=== PATIENT | female | born 1975 ===

== ENCOUNTER 2018-01-21 10:41 | Emergency (ER) | payer OTHER ==
[2018-01-21 10:44] VITALS: BMI 34.0
--- NOTE | 2018-01-21 11:26 | ED PDOC ---
Upper Extremity Pain/Injury Time Seen by Provider: 01/21/18 10:46 History Per: Patient History/Exam Limitations: language barrier Onset/Duration Of Symptoms: Hrs Current Symptoms Are (Timing): Constant Quality: Sharp Pain Scale Rating Of: 8 Additional History Per: Patient, Family (Son by bedside ) Additional Complaint(s): CC: L shoulder pain and nausea HPI: 42 YO Female with PMHx of asthma presents to [facility] ED for L shoulder pain and nausea. Pt states that all of her symptoms started this morning, suddenly. Pain is primarily in the shoulder and radiates down to the elbow. The shoulder pain started first and subsequently her nausea and abdominal discomfort started. Pt is dry heaving but no emesis. No trauma, pain worse with ROM of the shoulder. PMHx: asthma, uterine CIS SurgHx: hernia repair x 2 abd, hysterectomy, L arthoscopy, appendectomy SH: denies ETOH, smoking and illicit drug use FH: unknown Allergies: NKDA Meds: singular Past Medical History Vital Signs: Last Vital Signs Temp 98 F 01/21/18 10:44 Pulse 99 H 01/21/18 10:44 Resp 17 01/21/18 10:44 BP 115/76 01/21/18 10:44 Pulse Ox 99 01/21/18 10:44 - Medical History PMH: Asthma - Surgical History Surgical History: Appendectomy, Hernia Repair - Family History Family History: States: No Known Family Hx - Living Arrangements Living Arrangements: With Family - Social History Current smoker - smoking cessation education provided: No Alcohol: None Drugs: Denies - Home Medications Home Medications: Ambulatory Orders Medication Instructions Recorded Naproxen [Naprosyn] 500 mg PO Q12H #20 tab 01/21/18 - Allergies Allergies/Adverse Reactions: Allergies Allergy/AdvReac Type Severity Reaction Status Date / Time No Known Allergies Allergy Verified 01/21/18 11:18 Review of Systems Constitutional: Negative for: Fever, Chills Cardiovascular: Negative for: Chest Pain, Palpitations Respiratory: Negative for: Cough, Shortness of Breath Gastrointestinal: Positive for: Nausea. Negative for: Vomiting, Diarrhea, Constipation Genitourinary Female: Negative for: Dysuria, Frequency Musculoskeletal: Positive for: Shoulder Pain (R) Neurological: Negative for: Weakness, Numbness Physical Exam - Physical Exam Appears: Positive for: Uncomfortable Head Exam: Positive for: ATRAUMATIC Skin: Positive for: Normal Color Eye Exam: Positive for: Normal appearance, EOMI Neck: Positive for: Painless ROM Cardiovascular/Chest: Positive for: Regular Rate, Rhythm. Negative for: Murmur Respiratory: Positive for: Normal Breath Sounds. Negative for: Wheezing Gastrointestinal/Abdominal: Positive for: Normal Exam, Bowel Sounds ( hyperactive BS), Soft. Negative for: Tenderness Back: Positive for: Normal Inspection Extremity: Positive for: Normal ROM (of the RUE and lower extreities ), Swelling (mild edema around bicep insertsion site ), Other (pain with passive ROM, tenderness to palpation of the bicep muscle insertsion and bicep brachii). Negative for: Pedal Edema, Deformity Neurologic/Psych: Positive for: Alert - Laboratory Results Result Diagrams: 01/21/18 11:40 01/21/18 11:40 - ECG O2 Sat by Pulse Oximetry: 99 - Progress ED Course And Treament: 42 YO Female with LUE pain. VS stable, tachycardia -XR of humerus, and shoulder L side -cbc, cmp -zofran, IVF -toradol for pain 12:38--pt seen and reevaluated XR of humerus and of the shoulder L negative, no acute findings Blood work appreciated, normal Pt feeling better after IV meds and fluids Will d/c pt home with follow up in [facility], PO Naproxen for pain as needed Pt agrees with plan. Disposition - Clinical Impression Clinical Impression: Bursitis - Patient ED Disposition Is Patient to be Admitted: No - Disposition Referrals: [facility] [Outside] Disposition: Routine/Home Disposition Time: 12:49 Condition: FAIR Prescriptions: Naproxen [Naprosyn] 500 mg PO Q12H #20 tab Instructions: Bursitis Forms: [facility] (Polish), [facility] ED School/Work Excuse Print Language: TELUGU
[2018-01-21] MEDS ORDERED: Sodium Chloride 0.9% 1,000 ML IV SCH (11:30)
[2018-01-21 12:01] LABS: BASO % 0.4 % (0.0-2.0); EOS # 0.2 K/uL (0.0-0.7); EOS % 1.6 % (0.0-4.0); HEMOGLOBIN 15.4 g/dL (12.0-16.0); LYMPH # 1.4 K/uL (1.0-4.3); LYMPH % 14.1 % (20.0-40.0); MEAN CELL VOLUME 90.5 fl (81.0-99.0); MEAN CORPUSCULAR HEMOGLOBIN 30.2 pg (27.0-31.0); MEAN CORPUSCULAR HGB CONC 33.4 g/dL (33.0-37.0); MEAN PLATELET VOLUME 9.6 fl (7.2-11.7); MONO # 0.5 K/uL (0.0-0.8); MONO % 5.3 % (0.0-10.0); NEUT # 7.6 K/uL (1.8-7.0); NEUT % 78.6 % (50.0-75.0); NRBC % 0.1 % (0.0-0.0); RBC 5.1 Mil/uL (3.80-5.20); RED CELL DISTRIBUTION WIDTH 13.5 % (11.5-14.5); WHITE BLOOD COUNT 9.7 K/uL (4.8-10.8)
[2018-01-21 12:03] VITALS: RESP 15
[2018-01-21 12:05] VITALS: TEMP 98.1
[2018-01-21 12:15] LABS: BLOOD UREA NITROGEN 16 mg/dl (7-17); CALCIUM 9.7 mg/dL (8.4-10.2); GFR AFRICAN-AMERICAN > 60; GFR NON-AFRICAN AMERICAN > 60
--- NOTE | 2018-01-21 12:20 | RAD ---
Date of service: 01/21/2018 PROCEDURE: Radiographs of the Left Shoulder HISTORY: shoulder pain COMPARISON: Comparison made with concurrent radiographs left humerus. FINDINGS: BONES: Normal. No fracture. JOINTS: Normal. Glenohumeral and acromioclavicular joints preserved. No osteoarthritis. SOFT TISSUES: Normal. OTHER FINDINGS: None. IMPRESSION: Normal radiographs of the left shoulder.
--- NOTE | 2018-01-21 12:22 | RAD ---
PROCEDURE: Radiographs of the left humerus. . HISTORY: shoulder pain COMPARISON: Comparison made with the concurrent radiographs left shoulder FINDINGS: BONES: Normal. No fracture or focal lesion. SOFT TISSUES: Normal. OTHER FINDINGS: None. IMPRESSION: Normal radiographs of left humerus.
[2018-01-21 12:59] VITALS: BP 119/66; PULSE 88; O2SAT 100
== END 2018-01-21 13:04 | disposition home or self-care (01) ==
LOC: H.ER 10:41
DX: M75.52 Bursitis of left shoulder (principal); J45.909 Unspecified asthma, uncomplicated; Z87.890 Personal history of sex reassignment
CPT/HCPCS: 73030; 73060; 80048; 81025; 85025; 96372; 96374; 99284; J1885; J2405; J7030

== ENCOUNTER 2018-03-17 19:28 | Emergency (ER) | payer OTHER ==
[2018-03-17 19:28] VITALS: BMI 34.0
[2018-03-17 19:46] VITALS: BP 120/80; PULSE 79; RESP 16; TEMP 97.6; O2SAT 100
[2018-03-17] MEDS ORDERED: Sodium Chloride 0.9% 1,000 ML IV STA (21:01)
--- NOTE | 2018-03-17 21:04 | ED PDOC ---
HPI: Back Time Seen by Provider: 03/17/18 20:38 Chief Complaint (Nursing): Back Pain Chief Complaint (Provider): back pain History Per: Patient, Wordpress Developer ([email or web address] [id number]) Onset/Duration Of Symptoms: Days (3), Waxing/Waning Current Symptoms Are (Timing): Still Present Exacerbating Factor(s): Turning, Movement Additional Complaint(s): 42 y/o female presents for evaluation of right lower back pain x 3 days which worsened today after lifting heavy water bottles. States pain worsened by movement. Associated nausea, increased urine urgency x 2 days. Denies fever, nausea/vomiting, chest pain, shortness of breath, palpitations, dysuria, hematuria, vaginal bleeding/discharge. Patient has h/o kidney stones and states symptoms similar Past Medical History Reviewed: Historical Data, Nursing Documentation, Vital Signs Vital Signs: Last Vital Signs Temp 97.6 F 03/17/18 19:44 Pulse 79 03/17/18 19:44 Resp 16 03/17/18 19:44 BP 120/80 03/17/18 19:44 Pulse Ox 100 03/17/18 19:44 - Medical History PMH: Asthma, Hiatal Hernia Denies: Chronic Kidney Disease - Surgical History Surgical History: Appendectomy, Hernia Repair - Family History Family History: States: No Known Family Hx - Home Medications Home Medications: Ambulatory Orders Medication Instructions Recorded Naproxen [Naprosyn] 500 mg PO Q12H #20 tab 01/21/18 Ciprofloxacin HCl [Cipro] 500 mg PO BID #13 tab 03/17/18 Ibuprofen [Motrin Tab] 1 tab PO Q6 PRN #20 tab 03/17/18 Cyclobenzaprine [Cyclobenzaprine 10 mg PO BID PRN #10 tab 03/18/18 HCl] - Allergies Allergies/Adverse Reactions: Allergies Allergy/AdvReac Type Severity Reaction Status Date / Time No Known Allergies Allergy Verified 03/17/18 19:43 Review of Systems ROS Statement: Except As Marked, All Systems Reviewed And Found Negative Musculoskeletal: Positive for: Back Pain Physical Exam - Reviewed Nursing Documentation Reviewed: Yes Vital Signs Reviewed: Yes - Physical Exam Appears: Positive for: Well, Non-toxic, No Acute Distress Head Exam: Positive for: ATRAUMATIC, NORMAL INSPECTION, NORMOCEPHALIC Skin: Positive for: Normal Color Eye Exam: Positive for: Normal appearance ENT: Positive for: Normal ENT Inspection Cardiovascular/Chest: Positive for: Regular Rate, Rhythm Respiratory: Positive for: Normal Breath Sounds Gastrointestinal/Abdominal: Positive for: Bowel Sounds, Soft, Tenderness (right flank) Back: Positive for: Muscle Spasm (right lspine paravertebral tenderness). Negative for: L CVA Tenderness, R CVA Tenderness, Vertebral Tenderness Extremity: Positive for: Normal ROM Neurologic/Psych: Positive for: Alert, Oriented (x3) - Laboratory Results Result Diagrams: 03/17/18 21:45 03/17/18 21:45 - ECG O2 Sat by Pulse Oximetry: 100 - Progress ED Course And Treament: labs, urine, IV fluids, IV toradol, CT renal protocol EXAM: CT Abdomen and Pelvis Without Intravenous Contrast EXAM DATE/TIME: 03/17/2018 9:01 PM CLINICAL HISTORY: 42 years old, female; Pain; Abdominal pain; Flank; Right; Prior surgery; Surgery date: 6+ months; Surgery type: Append. Vent. Hernia. Hysterectomy. Uterine ca. ; Additional info : Right flank pain TECHNIQUE: Axial computed tomography images of the abdomen and pelvis without intravenous contrast. All CT scans at this facility use at least one of these dose optimization techniques: automated exposure control; mA and/or kV adjustment per patient size (includes targeted exams where dose is matched to clinical indication); or iterative reconstruction. Coronal and sagittal reformatted images were created and reviewed. COMPARISON: No relevant prior studies available. FINDINGS: Lung bases: Unremarkable. No mass. No consolidation. ABDOMEN: Liver: Unremarkable. Gallbladder and bile ducts: Unremarkable. No calcified stones. No ductal dilation. Pancreas: Unremarkable. No ductal dilation. Spleen: Unremarkable. No splenomegaly. Adrenals: Unremarkable. No mass. Kidneys and ureters: Multiple nonobstructing right renal calculi measuring up to 5 mm in the upper pole. No obstructive urolithiasis. Punctate nonobstructing left kidney upper pole calculus. Stomach and bowel: Unremarkable. No obstruction. No mucosal thickening. PELVIS: Appendix: No findings to suggest acute appendicitis. Bladder: Unremarkable. No stones. Reproductive: Unremarkable as visualized. ABDOMEN and PELVIS: Intraperitoneal space: Unremarkable. No free air. No significant fluid collection. Bones/joints: No acute fracture. No dislocation. Soft tissues: Unremarkable. Vasculature: Unremarkable. No abdominal aortic aneurysm. Lymph nodes: Unremarkable. No enlarged lymph nodes. IMPRESSION: Multiple nonobstructing right renal calculi measuring up On re-eval, patient states she is feeling better. Tolerated PO Patient educated on findings, discharged with rx Cipro (dose given in ED), Ibuprofen, FLexeril Advised fluids. FOllow up PMD 2-3 days REturn precautions given Disposition - Clinical Impression Clinical Impression: UTI (urinary tract infection), Back pain - Patient ED Disposition Is Patient to be Admitted: No Counseled Patient/Family Regarding: Studies Performed, Diagnosis, Need For Followup, Rx Given - Disposition Referrals: [facility] [Outside] Disposition: Routine/Home Disposition Time: 23:30 Condition: IMPROVED Prescriptions: Ciprofloxacin HCl [Cipro] 500 mg PO BID #13 tab Cyclobenzaprine [Cyclobenzaprine HCl] 10 mg PO BID PRN #10 tab PRN Reason: Muscle Spasm Ibuprofen [Motrin Tab] 1 tab PO Q6 PRN #20 tab PRN Reason: Pain, Moderate (4-7) Instructions: Urinary Tract Infections in Adults, Low Back Pain in Adults Print Language: SCOTTISH
[2018-03-17 21:50] LABS: BASO % 0.4 % (0.0-2.0); EOS # 0.3 K/uL (0.0-0.7); HEMOGLOBIN 14.3 g/dL (12.0-16.0); LYMPH # 2.4 K/uL (1.0-4.3); MEAN CELL VOLUME 89.7 fl (81.0-99.0); MEAN CORPUSCULAR HEMOGLOBIN 29.8 pg (27.0-31.0); MEAN CORPUSCULAR HGB CONC 33.2 g/dL (33.0-37.0); MEAN PLATELET VOLUME 9.4 fl (7.2-11.7); MONO # 0.5 K/uL (0.0-0.8); MONO % 6.5 % (0.0-10.0); NEUT # 4.9 K/uL (1.8-7.0); NEUT % 60.1 % (50.0-75.0); NRBC % 0.1 % (0.0-0.0); RBC 4.82 Mil/uL (3.80-5.20); RED CELL DISTRIBUTION WIDTH 13.1 % (11.5-14.5); WHITE BLOOD COUNT 8.1 K/uL (4.8-10.8)
[2018-03-17 22:01] LABS: ALB/GLOB RATIO 1.2 (1.0-2.1); ALBUMIN 4.3 g/dL (3.5-5.0); CALCIUM 9.2 mg/dL (8.4-10.2); GFR NON-AFRICAN AMERICAN > 60
[2018-03-17 22:10] LABS: SQUAMOUS EPITHIAL 1 /hpf (0-5); URINE BACTERIA RARE (<OCC); URINE BILIRUBIN NEGATIVE (NEGATIVE); URINE BLOOD SMALL (NEGATIVE); URINE CLARITY CLEAR (Clear); URINE COLOR YELLOW (YELLOW); URINE GLUCOSE (UA) NEG (Normal); URINE LEUKOCYTE ESTERASE TRACE Leu/uL (Negative); URINE PROTEIN NEGATIVE (NEGATIVE); URINE UROBILINOGEN 0.2-1.0 mg/dL (0.2-1.0)
[2018-03-17 22:12] LABS: ALT/SGPT 31 U/L (9-52); AST/SGOT 30 U/L (14-36); BLOOD UREA NITROGEN 17 mg/dl (7-17)
--- NOTE | 2018-03-18 10:53 | CT ---
Date of service: 03/17/2018 PROCEDURE: CT Abdomen and Pelvis without intravenous contrast HISTORY: right flank pain COMPARISON: None TECHNIQUE: Unenhanced study. Neither oral nor intravenous contrast administered. Radiation dose: Total exam DLP = 884.42 mGy-cm. This CT exam was performed using one or more of the following dose reduction techniques: Automated exposure control, adjustment of the mA and/or kV according to patient size, and/or use of iterative reconstruction technique. FINDINGS: LOWER THORAX: Unremarkable. LIVER: Unremarkable. No gross lesion or ductal dilatation. GALLBLADDER AND BILE DUCTS: Unremarkable. PANCREAS: Unremarkable. No gross lesion or ductal dilatation. SPLEEN: Unremarkable. ADRENALS: Unremarkable. No mass. KIDNEYS AND URETERS: Multiple nonobstructing sub cm calculi right kidney only. The largest in the lower pole measures 6.5 mm. VASCULATURE: Unremarkable. No aortic aneurysm. BOWEL: Unremarkable. No obstruction. No gross mural thickening. APPENDIX: No abnormalities to suggest acute appendicitis. No right lower quadrant inflammatory processes identified. PERITONEUM: Unremarkable. No free fluid. No free air. LYMPH NODES: Unremarkable. No enlarged lymph nodes. BLADDER: Unremarkable. REPRODUCTIVE: Unremarkable. BONES: No acute fracture. OTHER FINDINGS: None. IMPRESSION: Nonobstructing subcentimeter calculi confined to the right kidney. Otherwise unremarkable study. Concordant results (preliminary interpretation) provided by [facility]. Procedure Completed: 22:21 Preliminary ([facility]Rad) Report: Dictated and Authenticated: 23:13. Final Interpretation: 10:47. March 18, 2018.
== END 2018-03-18 00:20 | disposition home or self-care (01) ==
LOC: H.ER 19:28
DX: N39.0 Urinary tract infection, site not specified (principal); M54.5 Low back pain; Z87.442 Personal history of urinary calculi; C55 Malignant neoplasm of uterus, part unspecified; Z90.710 Acquired absence of both cervix and uterus
CPT/HCPCS: 74176; 80053; 81003; 85025; 87086; 96360; 99283; J1885; J7030

== ENCOUNTER 2018-05-12 21:20 | Emergency (ER) | payer OTHER ==
[2018-05-12 21:21] VITALS: BMI 34.0
--- NOTE | 2018-05-12 22:39 | ED PDOC ---
HPI: Skin/Bite Injury Time Seen by Provider: 05/12/18 22:24 Chief Complaint (Nursing): Headache Chief Complaint (Provider): allergic reaction History Per: Patient History/Exam Limitations: no limitations Onset/Duration Of Symptoms: Hrs (prior to arrival) Current Symptoms Are (Timing): Still Present Quality Of Symptoms: Itching Additional Complaint(s): Christina Valdes is a 43 year old female, with a past medical history of asthma, who presents to the emergency department complaining of an allergic reaction onset today associated with a mild pressure-like headache. Patient reports she was coming out of [facility] when she felt her eyes were itchy and noticed facial swelling with some mild itching. She went home and took Loratadine. She denies any similar reactions in the past, new lotions, soaps or environmental exposures she may be aware of. Patient also reports a cough and congestion ongoing for x2 days but denies any fever, chills, chest pain, shortness of breath, nausea, vomiting, diarrhea, abdominal pain, dizziness, weakness, numbness or tingling, vision changes or other medical complaints. PMD: None provided. Past Medical History Reviewed: Historical Data, Nursing Documentation, Vital Signs Vital Signs: Last Vital Signs Temp 97.7 F 05/12/18 22:18 Pulse 88 05/12/18 22:18 Resp 16 05/12/18 22:18 BP 131/93 H 05/12/18 22:18 Pulse Ox 100 05/12/18 22:18 - Medical History PMH: Asthma, Hiatal Hernia Denies: Chronic Kidney Disease - Surgical History Surgical History: Appendectomy, Hernia Repair - Family History Family History: States: Unknown Family Hx - Home Medications Home Medications: Ambulatory Orders Medication Instructions Recorded Naproxen [Naprosyn] 500 mg PO Q12H #20 tab 01/21/18 Ciprofloxacin HCl [Cipro] 500 mg PO BID #13 tab 03/17/18 Ibuprofen [Motrin Tab] 1 tab PO Q6 PRN #20 tab 03/17/18 Cyclobenzaprine [Cyclobenzaprine 10 mg PO BID PRN #10 tab 03/18/18 HCl] DiphenhydrAMINE [Benadryl] 25 mg PO TID PRN 5 Days cap 05/12/18 predniSONE [predniSONE Tab] 20 mg PO BID 5 Days tab 05/12/18 - Allergies Allergies/Adverse Reactions: Allergies Allergy/AdvReac Type Severity Reaction Status Date / Time No Known Allergies Allergy Verified 03/17/18 19:43 Review of Systems ROS Statement: Except As Marked, All Systems Reviewed And Found Negative Constitutional: Negative for: Fever, Chills Eyes: Positive for: Other (itchiness). Negative for: Vision Change ENT: Positive for: Nose Congestion Cardiovascular: Negative for: Chest Pain Respiratory: Positive for: Cough. Negative for: Shortness of Breath Gastrointestinal: Negative for: Nausea, Vomiting, Abdominal Pain, Diarrhea Skin: Positive for: Other (facial swelling) Neurological: Positive for: Headache. Negative for: Weakness, Numbness (tingling), Dizziness Physical Exam - Reviewed Nursing Documentation Reviewed: Yes Vital Signs Reviewed: Yes - Physical Exam Appears: Positive for: No Acute Distress Head Exam: Positive for: ATRAUMATIC, NORMAL INSPECTION, NORMOCEPHALIC Skin: Positive for: Normal Color, Warm, Dry. Negative for: Rash Eye Exam: Positive for: EOMI, PERRL, Other (mild infraorbital swelling, nontender) ENT: Positive for: Pharynx Is (clear), Other (Blanching erythema to cheeks and chin. No tongue swelling ). Negative for: Tonsillar Swelling Neck: Positive for: Normal, Painless ROM Cardiovascular/Chest: Positive for: Regular Rate, Rhythm. Negative for: Murmur Respiratory: Positive for: Normal Breath Sounds. Negative for: Respiratory Distress Gastrointestinal/Abdominal: Positive for: Normal Exam, Soft. Negative for: Tenderness Back: Positive for: Normal Inspection Extremity: Positive for: Normal ROM (upper and lower extremities). Negative for: Deformity Neurologic/Psych: Positive for: Alert, Oriented - ECG O2 Sat by Pulse Oximetry: 100 (RA) Pulse Ox Interpretation: Normal - Progress ED Course And Treament: 2239: Stable. AAOx3. Pain free. Likely allergic reaction. FU with pcp. Medical Decision Making Medical Decision Making: Time: 22:24 Initial Impression: Allergic reaction Initial Plan: --Benadryl 25 mg PO --Prednisone 60 mg PO --Reevaluation ----- Scribe Attestation: Documented by Mj Swift, acting as a scribe for Carl Echols MD. Provider Scribe Attestation: All medical record entries made by the Scribe were at my direction and p ersonally dictated by me. I have reviewed the chart and agree that the record accurately reflects my personal performance of the history, physical exam, medical decision making, and the department course for this patient. I have also personally directed, reviewed, and agree with the discharge instructions and disposition. Disposition - Clinical Impression Clinical Impression: Urticaria - Patient ED Disposition Is Patient to be Admitted: No Counseled Patient/Family Regarding: Diagnosis, Need For Followup, Rx Given - Disposition Referrals: [facility] [Outside] - 05/13/18 Disposition: Routine/Home Disposition Time: 22:39 Condition: STABLE Additional Instructions: Return if not better in 3 days. Prescriptions: DiphenhydrAMINE [Benadryl] 25 mg PO TID PRN 5 Days cap PRN Reason: Itching / Pruritus predniSONE [predniSONE Tab] 20 mg PO BID 5 Days tab Instructions: Mara (DC) Forms: [employer] (Spanish) Print Language: BOLIVIAN
[2018-05-13 00:05] VITALS: BP 116/79; PULSE 84; RESP 18; TEMP 97.9; O2SAT 98
== END 2018-05-12 23:55 | disposition home or self-care (01) ==
LOC: H.ER 21:20
DX: L50.0 Allergic urticaria (principal)

== ENCOUNTER 2018-06-15 11:43 | Emergency (ER) | payer OTHER, SELFPAY ==
[2018-06-15 11:44] VITALS: BMI 34.0
[2018-06-15 11:48] VITALS: BP 133/79; PULSE 84; RESP 18; TEMP 98.2; O2SAT 98
--- NOTE | 2018-06-15 12:12 | ED PDOC ---
HPI: Eye Injury/Pain Time Seen by Provider: 06/15/18 12:08 Chief Complaint (Nursing): Eye Problem Chief Complaint (Provider): Eye Problem History Per: Patient History/Exam Limitations: no limitations Onset/Duration Of Symptoms: Days (x 4) Current Symptoms Are (Timing): Still Present Associated Symptoms: Swelling Additional Complaint(s): 43 year old female presents to the ED with swelling in the right upper eyelid x4 days. Patient reports using over the counter ointment with no relief. Offers no other medical complaints. PMD: none provided Past Medical History Reviewed: Historical Data, Nursing Documentation, Vital Signs Vital Signs: Last Vital Signs Temp 98.2 F 06/15/18 12:01 Pulse 84 06/15/18 12:01 Resp 18 06/15/18 12:01 BP 133/79 06/15/18 12:01 Pulse Ox 98 06/15/18 12:01 - Medical History PMH: Asthma, Hiatal Hernia, Kidney Stones Denies: Chronic Kidney Disease - Surgical History Surgical History: Appendectomy, Hernia Repair - Family History Family History: States: Unknown Family Hx - Home Medications Home Medications: Ambulatory Orders Medication Instructions Recorded Naproxen [Naprosyn] 500 mg PO Q12H #20 tab 01/21/18 Ciprofloxacin HCl [Cipro] 500 mg PO BID #13 tab 03/17/18 Ibuprofen [Motrin Tab] 1 tab PO Q6 PRN #20 tab 03/17/18 Cyclobenzaprine [Cyclobenzaprine 10 mg PO BID PRN #10 tab 03/18/18 HCl] DiphenhydrAMINE [Benadryl] 25 mg PO TID PRN 5 Days cap 05/12/18 predniSONE [predniSONE Tab] 20 mg PO BID 5 Days tab 05/12/18 Erythromycin 0.5% [Erythromycin] 0.5 gm TOP BID #1 tube 06/15/18 - Allergies Allergies/Adverse Reactions: Allergies Allergy/AdvReac Type Severity Reaction Status Date / Time No Known Allergies Allergy Verified 03/17/18 19:43 Review of Systems ROS Statement: Except As Marked, All Systems Reviewed And Found Negative Eyes: Positive for: Eyelid Inflammation (right upper ) Physical Exam - Reviewed Nursing Documentation Reviewed: Yes Vital Signs Reviewed: Yes - Physical Exam Appears: Positive for: Non-toxic, No Acute Distress Head Exam: Positive for: ATRAUMATIC, NORMAL INSPECTION, NORMOCEPHALIC Skin: Positive for: Normal Color, Warm, Dry Eye Exam: Positive for: EOMI, PERRL, Other (mild swelling and erythema to right upper eyelid ). Negative for: Conjunctival injection Cardiovascular/Chest: Positive for: Regular Rate, Rhythm Respiratory: Positive for: Normal Breath Sounds Neurologic/Psych: Positive for: Alert, Oriented. Negative for: Motor/Sensory Deficits - ECG O2 Sat by Pulse Oximetry: 98 (RA) Pulse Ox Interpretation: Normal Medical Decision Making Medical Decision Making: Scribe Attestation: Documented by Sherry Thomas, acting as a scribe for Torie Benton PA-C Provider Scribe Attestation: All medical record entries made by the Scribe were at my direction and personally dictated by me. I have reviewed the chart and agree that the record accurately reflects my personal performance of the history, physical exam, medical decision making, and the department course for this patient. I have also personally directed, reviewed, and agree with the discharge instructions and disposition. Disposition - Clinical Impression Clinical Impression: Stye - Patient ED Disposition Is Patient to be Admitted: No - Disposition Referrals: Paul Hawthorne MD [Staff Provider] - Disposition: Routine/Home Disposition Time: 12:12 Condition: FAIR Prescriptions: Erythromycin 0.5% [Erythromycin] 0.5 gm TOP BID #1 tube Instructions: Kate ([employer]) Print Language: URUGUAYAN
== END 2018-06-15 12:43 | disposition home or self-care (01) ==
LOC: H.ER 11:43
DX: H00.011 Hordeolum externum right upper eyelid (principal)

== ENCOUNTER 2018-06-19 21:13 | Emergency (ER) | payer SELFPAY ==
[2018-06-19 21:13] VITALS: BMI 34.0
[2018-06-19 21:18] VITALS: TEMP 97.7
[2018-06-19] MEDS ORDERED: Sodium Chloride 0.9% 1,000 ML IV STA (21:39)
[2018-06-19] MEDS ORDERED: Iohexol 240 (50 ml) PO ONE (21:39)
--- NOTE | 2018-06-19 21:50 | ED PDOC ---
HPI: Abdomen Time Seen by Provider: 06/19/18 21:17 Chief Complaint (Nursing): Abdominal Pain Chief Complaint (Provider): abdominal pain History Per: Patient History/Exam Limitations: no limitations Onset/Duration Of Symptoms: Hrs (2) Current Symptoms Are (Timing): Still Present Location Of Pain/Discomfort: RLQ, LLQ, Suprapubic Associated Symptoms: Nausea, Diarrhea, Constipation Last Bowel Movement: Today Additional Complaint(s): 43 y/o female brought in by EMS for evaluation of lower abdominal pain x 2 hours. Patient states she has a history of constipation; had small bowel movement this morning and then tonight she developed sharp lower abdominal pain and the urge to have a bowel movement. Patient admits to straining while on toilet, states she had watery diarrhea and then felt generally weak and passed out on toilet against side of sink. Patient states abdominal pain slightly i mproved but still present. Patient denies head injury, headache, dizziness, vomiting, chest pain, shortness of breath, palpitations, urinary symptoms. Past Medical History Vital Signs: Last Vital Signs Temp 97.7 F 06/19/18 21:16 Pulse 81 06/19/18 21:16 Resp 18 06/19/18 21:16 BP 104/75 06/19/18 21:16 Pulse Ox 100 06/19/18 21:16 - Medical History PMH: Asthma, Hiatal Hernia, Kidney Stones Denies: Chronic Kidney Disease - Surgical History Surgical History: Appendectomy, Hernia Repair - Family History Family History: States: Unknown Family Hx - Home Medications Home Medications: Ambulatory Orders Medication Instructions Recorded Naproxen [Naprosyn] 500 mg PO Q12H #20 tab 01/21/18 Ciprofloxacin HCl [Cipro] 500 mg PO BID #13 tab 03/17/18 Ibuprofen [Motrin Tab] 1 tab PO Q6 PRN #20 tab 03/17/18 Cyclobenzaprine [Cyclobenzaprine 10 mg PO BID PRN #10 tab 03/18/18 HCl] DiphenhydrAMINE [Benadryl] 25 mg PO TID PRN 5 Days cap 05/12/18 predniSONE [predniSONE Tab] 20 mg PO BID 5 Days tab 05/12/18 Erythromycin 0.5% [Erythromycin] 0.5 gm TOP BID #1 tube 06/15/18 Dicyclomine [Bentyl] 20 mg PO TID PRN #15 tab 06/20/18 Nitrofurantoin Macrocrystals 100 mg PO BID #9 cap 06/20/18 [Macrobid] - Allergies Allergies/Adverse Reactions: Allergies Allergy/AdvReac Type Severity Reaction Status Date / Time No Known Allergies Allergy Verified 06/19/18 21:16 - Laboratory Results Result Diagrams: 06/19/18 21:50 06/19/18 21:50 - ECG ECG: Positive for: Viewed By Me (reviewed by ED attending) ECG Rhythm: Positive for: Sinus Rhythm O2 Sat by Pulse Oximetry: 100 - Progress ED Course And Treament: -cbc -cmp -lipase -urinalysis -urine c&s -IV fluids -IV zofran -ekg -CT abd/pelvis CT SCAN OF THE ABDOMEN AND PELVIS WITH CONTRAST. CLINICAL HISTORY: Abdominal pain. TECHNIQUE: Multiple axial and coronal CT images were obtained through the abdomen and pelvis after administration of intravenous and oral contrast material. COMPARISON: 03/17/2018. COMMENTS: The liver is of uniform attenuation without mass or defect. There is no intra or extrahepatic biliary ductal dilatation. The spleen is normal. The gallbladder is within normal limits. The pancreas is of normal contour and attenuation characteristics. There is no evidence of adrenal mass. Right renal nonobstructing stone in the largest measuring 7 mm. Both kidneys demonstrate prompt and equal nephrograms. The kidneys are normal in size, shape and configuration. There is no evidence of renal or ureteral mass. No ureteral calculi are identified. There is no hydroureter or hydronephrosis. Diffuse thickening of the sigmoid colon. Diffuse thickening of the transverse colon. No evidence for appendicitis. There is no bowel wall thickening. No evidence for small or large bowel obstruction. There is no evidence of abdominal ascites or lymphadenopathy. There is no evidence of intrinsic or extrinsic bladder mass. There is no pelvic ascites or lymphadenopathy. Images of the lung bases show no evidence of pleural or parenchymal mass. There are no pleural effusions. The bony structures are free of lytic or blastic lesions. IMPRESSION: Diffuse thickening of the sigmoid colon. Diffuse thickening of the transverse colon. Underdistention, spasm versus mild multifocal colitis. Findings were not present on prior exam. Patient educated on findings, discharged with rx Macrobid (dose given in ED), Castilloyl Advised follow up PMD within 2-3 days Encouraged fluids, bland diet Return precautions given Disposition - Clinical Impression Clinical Impression: UTI (urinary tract infection), Colitis, Vasovagal syncope, Abdominal pain - Patient ED Disposition Is Patient to be Admitted: No Counseled Patient/Family Regarding: Studies Performed, Diagnosis, Need For Followup, Rx Given - Disposition Referrals: [facility] [Outside] Disposition: Routine/Home Disposition Time: 01:28 Condition: IMPROVED Prescriptions: Dicyclomine [Bentyl] 20 mg PO TID PRN #15 tab PRN Reason: Pain, Mild (1-3) Nitrofurantoin Macrocrystals [Macrobid] 100 mg PO BID #9 cap Instructions: Urinary Tract Infections in Adults, Diarrhea in Adolescents and Adults, Vasovagal Response, Acute Abdomen (Belly Pain) Forms: [facility] (Comoran) Print Language: CUBAN
[2018-06-19] MEDS ORDERED: Iohexol 240 (50 ml) ONE (21:54)
[2018-06-19 22:12] LABS: BASO % 0.2 % (0.0-2.0); EOS # 0.2 K/uL (0.0-0.7); EOS % 2.4 % (0.0-4.0); HEMOGLOBIN 14.1 g/dL (12.0-16.0); LYMPH # 2.7 K/uL (1.0-4.3); LYMPH % 27.8 % (20.0-40.0); MEAN CELL VOLUME 89.9 fl (81.0-99.0); MEAN CORPUSCULAR HEMOGLOBIN 29.6 pg (27.0-31.0); MEAN CORPUSCULAR HGB CONC 32.9 g/dL (33.0-37.0); MEAN PLATELET VOLUME 9.7 fl (7.2-11.7); MONO # 0.6 K/uL (0.0-0.8); MONO % 6.6 % (0.0-10.0); NEUT # 6.2 K/uL (1.8-7.0); RBC 4.76 Mil/uL (3.80-5.20); RED CELL DISTRIBUTION WIDTH 14.1 % (11.5-14.5); WHITE BLOOD COUNT 9.8 K/uL (4.8-10.8)
[2018-06-19 22:25] LABS: ALB/GLOB RATIO 1.1 (1.0-2.1); ALBUMIN 3.8 g/dL (3.5-5.0); ALT/SGPT 28 U/L (9-52); AST/SGOT 18 U/L (14-36); BLOOD UREA NITROGEN 21 mg/dl (7-17); CALCIUM 9.4 mg/dL (8.4-10.2); GFR NON-AFRICAN AMERICAN > 60; LIPASE 75 U/L (23-300)
[2018-06-19 22:35] LABS: SQUAMOUS EPITHIAL 3 /hpf (0-5); URINE BACTERIA RARE (<OCC); URINE BILIRUBIN NEGATIVE (NEGATIVE); URINE BLOOD MODERATE (NEGATIVE); URINE CLARITY SLIGHTY-CLOUDY (Clear); URINE COLOR YELLOW (YELLOW); URINE GLUCOSE (UA) NEG (NEGATIVE); URINE LEUKOCYTE ESTERASE TRACE Leu/uL (Negative); URINE PROTEIN 30 mg/dL (NEGATIVE); URINE UROBILINOGEN 0.2-1.0 mg/dL (0.2-1.0)
[2018-06-20] MEDS ORDERED: Sodium Chloride 0.9% 50 ML IV ONE (00:09)
[2018-06-20] MEDS ORDERED: Iohexol 300 100 ML IJ ONE (00:09)
[2018-06-20 00:47] VITALS: BP 118/71; PULSE 83; RESP 15
[2018-06-20 01:28] VITALS: O2SAT 100
--- NOTE | 2018-06-20 08:42 | CT ---
Date of service: 06/20/2018 PROCEDURE: CT Abdomen and Pelvis with contrast HISTORY: lower abdominal pain, diarrhea COMPARISON: None. TECHNIQUE: Contrast dose: Radiation dose: Total exam DLP = 697.66 mGy-cm. This CT exam was performed using one or more of the following dose reduction techniques: Automated exposure control, adjustment of the mA and/or kV according to patient size, and/or use of iterative reconstruction technique. FINDINGS: LOWER THORAX: Unremarkable. LIVER: Unremarkable. No gross lesion or ductal dilatation. GALLBLADDER AND BILE DUCTS: Unremarkable. PANCREAS: Unremarkable. No gross lesion or ductal dilatation. SPLEEN: Unremarkable. ADRENALS: Unremarkable. No mass. KIDNEYS AND URETERS: Right nephrolithiasis.. No hydronephrosis. No solid mass. VASCULATURE: Unremarkable. No aortic aneurysm. No aortic atherosclerotic calcification or mural plaque present. BOWEL: Unremarkable. No obstruction. No gross mural thickening. APPENDIX: Normal appendix. PERITONEUM: Unremarkable. No free fluid. No free air. LYMPH NODES: Unremarkable. No enlarged lymph nodes. BLADDER: Unremarkable. REPRODUCTIVE: Hysterectomy. BONES: No acute fracture. OTHER FINDINGS: None. IMPRESSION: Right nephrolithiasis. Hysterectomy.
--- NOTE | 2018-06-20 18:35 | CARD ---
APPROVED REPORT Date of service: 06/19/2018 EKG Measurement Heart [id number] <Conclusion> Normal sinus rhythm Normal ECG
== END 2018-06-20 01:41 | disposition home or self-care (01) ==
LOC: H.ER 21:13
DX: N39.0 Urinary tract infection, site not specified (principal); R55 Syncope and collapse; K52.9 Noninfective gastroenteritis and colitis, unspecified; R19.7 Diarrhea, unspecified
CPT/HCPCS: 74177; 80053; 81003; 81025; 83690; 85025; 93005; 96360; 99284; J2405; J7030; Q9966; Q9967

== ENCOUNTER 2018-10-07 11:19 | Observation (INO) | payer SELFPAY ==
[2018-10-07 11:24] VITALS: BMI 32.5
[2018-10-07] MEDS ORDERED: Sodium Chloride 0.9% 1,000 ML IV STA (12:22)
[2018-10-07 12:54] LABS: BASO % 0.1 % (0.0-2.0); EOS # 0.2 K/uL (0.0-0.7); EOS % 2.1 % (0.0-4.0); LYMPH # 1.3 K/uL (1.0-4.3); LYMPH % 15.8 % (20.0-40.0); MEAN CELL VOLUME 89.2 fl (81.0-99.0); MEAN CORPUSCULAR HEMOGLOBIN 29.9 pg (27.0-31.0); MEAN CORPUSCULAR HGB CONC 33.5 g/dL (33.0-37.0); MEAN PLATELET VOLUME 9.1 fl (7.2-11.7); MONO # 0.6 K/uL (0.0-0.8); MONO % 7.2 % (0.0-10.0); NEUT % 74.8 % (50.0-75.0); NRBC % 0.1 % (0.0-0.0); RBC 4.67 Mil/uL (3.80-5.20); RED CELL DISTRIBUTION WIDTH 13.3 % (11.5-14.5)
[2018-10-07 12:59] LABS: SQUAMOUS EPITHIAL 2 /hpf (0-5); URINE BILIRUBIN NEGATIVE (NEGATIVE); URINE BLOOD MODERATE (NEGATIVE); URINE CLARITY CLEAR (Clear); URINE COLOR YELLOW (YELLOW); URINE GLUCOSE (UA) NEG (NEGATIVE); URINE LEUKOCYTE ESTERASE NEG Leu/uL (Negative); URINE PROTEIN NEGATIVE (NEGATIVE); URINE UROBILINOGEN 0.2-1.0 mg/dL (0.2-1.0)
[2018-10-07 13:05] LABS: ALB/GLOB RATIO 1.2 (1.0-2.1); ALBUMIN 4.1 g/dL (3.5-5.0); ALT/SGPT 27 U/L (9-52); AST/SGOT 22 U/L (14-36); BLOOD UREA NITROGEN 17 mg/dl (7-17); CALCIUM 9.6 mg/dL (8.4-10.2); GFR NON-AFRICAN AMERICAN > 60
--- NOTE | 2018-10-07 13:11 | ED PDOC ---
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 Patient states that she was recently diagnosed with a right kidney stone in the [place] for which she was given over the counter pain medications. She admits that after returning to the [facility], pain has become more severe and is associated with nausea, dizziness, and weakness. Patient offers no other medical complaints at this time. PMD: none provided Past Medical History Reviewed: Historical Data, Nursing Documentation, Vital Signs Vital Signs: Last Vital Signs Temp 98.3 F 10/07/18 11:22 Pulse 76 10/07/18 11:22 Resp 16 10/07/18 11:22 BP 128/80 10/07/18 11:22 Pulse Ox 99 10/07/18 11:22 - Medical History PMH: Asthma, Hiatal Hernia, Kidney Stones Denies: Chronic Kidney Disease - Surgical History Surgical History: Appendectomy, Hernia Repair - Family History Family History: States: Unknown Family Hx - Social History Current smoker - smoking cessation education provided: No Alcohol: None Drugs: Denies - Home Medications Home Medications: Ambulatory Orders Medication Instructions Recorded Pantoprazole [Protonix EC Tab] 40 mg PO DAILY ect 10/08/18 - Allergies Allergies/Adverse Reactions: Allergies Allergy/AdvReac Type Severity Reaction Status Date / Time No Known Allergies Allergy Verified 06/19/18 21:16 Review of Systems ROS Statement: Except As Marked, All Systems Reviewed And Found Negative Constitutional: Positive for: Weakness Gastrointestinal: Positive for: Nausea, Abdominal Pain Neurological: Positive for: Dizziness Physical Exam - Reviewed Nursing Documentation Reviewed: Yes Vital Signs Reviewed: Yes - Physical Exam Appears: Positive for: Non-toxic, No Acute Distress (but appears in pain ) Head Exam: Positive for: ATRAUMATIC, NORMAL INSPECTION, NORMOCEPHALIC Skin: Positive for: Normal Color, Warm, DRY Eye Exam: Positive for: EOMI, Normal appearance, PERRL Neck: Positive for: Normal, Painless ROM Cardiovascular/Chest: Positive for: Regular Rate, Rhythm. Negative for: Murmur Respiratory: Positive for: Normal Breath Sounds. Negative for: Respiratory Distress Gastrointestinal/Abdominal: Positive for: Soft, Tenderness (right sided abdominal and flank tenderness ). Negative for: Distended, Guarding, Rebound Back: Positive for: Normal Inspection. Negative for: L CVA Tenderness, R CVA Tenderness, Vertebral Tenderness Extremity: Positive for: Normal ROM. Negative for: Deformity, Swelling Neurological/Psych: Positive for: Awake, Alert, Normal Tone, Oriented. Negative for: Motor/Sensory Deficits - Laboratory Results Result Diagrams: 10/08/18 06:10 10/08/18 06:10 Lab Results: Total Bilirubin 0.3 mg/dl (0.2-1.3) 10/07/18 12:40 AST 22 U/L (14-36) 10/07/18 12:40 ALT 27 U/L (9-52) 10/07/18 12:40 Alkaline Phosphatase 91 U/L (38-126) 10/07/18 12:40 Total Protein 7.5 G/DL (6.3-8.2) 10/07/18 12:40 Albumin 4.1 g/dL (3.5-5.0) 10/07/18 12:40 Globulin 3.4 gm/dL (2.2-3.9) 10/07/18 12:40 Albumin/Globulin Ratio 1.2 (1.0-2.1) 10/07/18 12:40 Urine Color Yellow (YELLOW) 10/07/18 12:40 Urine Clarity Clear (Clear) 10/07/18 12:40 Urine pH 6.0 (5.0-8.0) 10/07/18 12:40 Ur Specific [place] 1.009 (1.003-1.030) 10/07/18 12:40 Urine Protein Negative mg/dL (NEGATIVE) 10/07/18 12:40 Urine Glucose (UA) Neg mg/dL (NEGATIVE) 10/07/18 12:40 Urine Ketones Negative mg/dL (NEGATIVE) 10/07/18 12:40 Urine Blood Moderate (NEGATIVE) 10/07/18 12:40 Urine Nitrate Negative (NEGATIVE) 10/07/18 12:40 Urine Bilirubin Negative (NEGATIVE) 10/07/18 12:40 Urine Urobilinogen 0.2-1.0 mg/dL (0.2-1.0) 10/07/18 12:40 Ur Leukocyte Esterase Neg Jon/uL (Negative) 10/07/18 12:40 Urine RBC (Auto) 12 /hpf (0-3) H 10/07/18 12:40 Urine Microscopic WBC 3 /hpf (0-5) 10/07/18 12:40 Ur Squamous Epith Cells 2 /hpf (0-5) 10/07/18 12:40 - ECG O2 Sat by Pulse Oximetry: 99 (RA) Pulse Ox Interpretation: Normal Medical Decision Making Medical Decision Making: Time: 12:22 A/P: Workup for stone vs. renal/abdominal pathology --Labs, Toradol, IV fluids --CT Abd/Pelvis --Reassess patient 15:00 Patient who is comfortable at this time will be signed out to Dr. Burton pending CT results with most likely discharge and urology follow up. ------ Scribe Attestation: Documented by Tova Grace, acting as a scribe for Haylee Ansari MD. Provider Scribe Attestation: All medical record entries made by the Scribe were at my direction and personally dictated by me. I have reviewed the chart and agree that the record accurately reflects my personal performance of the history, physical exam, medical decision making, and the department course for this patient. I have also personally directed, reviewed, and agree with the discharge instructions and disposition. Disposition - Clinical Impression Clinical Impression: Nephrolithiasis, Hydronephrosis - Disposition Disposition: Routine/Home Disposition Time: 11:38 Condition: STABLE
[2018-10-07] MEDS ORDERED: Iohexol 300 100 ML IJ ONE ×2 (13:45→18:16)
[2018-10-07] MEDS ORDERED: Sodium Chloride 0.9% 50 ML IV ONE (13:45)
--- NOTE | 2018-10-07 15:01 | CT ---
Date of service: 10/07/2018 PROCEDURE: CT Abdomen and Pelvis without intravenous contrast HISTORY: Right sided abdominal pain. COMPARISON: 06/20/2018 TECHNIQUE: Without contrast.. Contrast dose: 0 Radiation dose: Total exam DLP = 829.26 mGy-cm. This CT exam was performed using one or more of the following dose reduction techniques: Automated exposure control, adjustment of the mA and/or kV according to patient size, and/or use of iterative reconstruction technique. FINDINGS: LOWER THORAX: Unremarkable. LIVER: Unremarkable. No gross lesion or ductal dilatation. GALLBLADDER AND BILE DUCTS: Unremarkable. PANCREAS: Unremarkable. No gross lesion or ductal dilatation. SPLEEN: Unremarkable. ADRENALS: Unremarkable. No mass. KIDNEYS AND URETERS: Right hydroureteronephrosis. There are 2 calculi in the mid right ureter, measuring roughly 6 mm and 7 mm respectively. These are obstructing. There is no hydroureter distal to these calculi. There are several small calculi in the lower pole right kidney, nonobstructing. No renal mass. 2 mm nonobstructing left upper pole renal calculus. VASCULATURE: Unremarkable. No aortic aneurysm. No aortic atherosclerotic calcification or mural plaque present. BOWEL: Unremarkable. No obstruction. No gross mural thickening. APPENDIX: Not identified. No secondary findings. PERITONEUM: Unremarkable. No free fluid. No free air. LYMPH NODES: Unremarkable. No enlarged lymph nodes. BLADDER: Poorly distended. No gross abnormality. REPRODUCTIVE: Status post hysterectomy BONES: No acute fracture. OTHER FINDINGS: None. IMPRESSION: Two obstructing mid right ureteral calculi, 6 and 7 mm respectively. Several nonobstructing right lower pole renal calculi and 1 nonobstructing left upper pole renal calculus. Right hydroureteronephrosis. No other significant abnormality.
--- NOTE | 2018-10-07 15:14 | ED PDOC ---
- Laboratory Results Result Diagrams: 10/07/18 12:40 10/07/18 12:40 Lab Results: Total Bilirubin 0.3 mg/dl (0.2-1.3) 10/07/18 12:40 AST 22 U/L (14-36) 10/07/18 12:40 ALT 27 U/L (9-52) 10/07/18 12:40 Alkaline Phosphatase 91 U/L (38-126) 10/07/18 12:40 Total Protein 7.5 G/DL (6.3-8.2) 10/07/18 12:40 Albumin 4.1 g/dL (3.5-5.0) 10/07/18 12:40 Globulin 3.4 gm/dL (2.2-3.9) 10/07/18 12:40 Albumin/Globulin Ratio 1.2 (1.0-2.1) 10/07/18 12:40 Urine Color Yellow (YELLOW) 10/07/18 12:40 Urine Clarity Clear (Clear) 10/07/18 12:40 Urine pH 6.0 (5.0-8.0) 10/07/18 12:40 Ur Specific [place] 1.009 (1.003-1.030) 10/07/18 12:40 Urine Protein Negative mg/dL (NEGATIVE) 10/07/18 12:40 Urine Glucose (UA) Neg mg/dL (NEGATIVE) 10/07/18 12:40 Urine Ketones Negative mg/dL (NEGATIVE) 10/07/18 12:40 Urine Blood Moderate (NEGATIVE) 10/07/18 12:40 Urine Nitrate Negative (NEGATIVE) 10/07/18 12:40 Urine Bilirubin Negative (NEGATIVE) 10/07/18 12:40 Urine Urobilinogen 0.2-1.0 mg/dL (0.2-1.0) 10/07/18 12:40 Ur Leukocyte Esterase Neg Jon/uL (Negative) 10/07/18 12:40 Urine RBC (Auto) 12 /hpf (0-3) H 10/07/18 12:40 Urine Microscopic WBC 3 /hpf (0-5) 10/07/18 12:40 Ur Squamous Epith Cells 2 /hpf (0-5) 10/07/18 12:40 - ECG O2 Sat by Pulse Oximetry: 99 (RA) Pulse Ox Interpretation: Normal Medical Decision Making Medical Decision Making: Time: 15:00 Patient presenting for right sided abdominal pain was signed out to me by Dr. Ansari pending CT results. Accession No. : [id number] Patient Name / ID : RUANO / [id number] Exam Date : 10/07/2018 14:13:00 ( Approved ) Study Comment : Sex / Age : F / 43Y Creator : Robert Jaffe MD Dictator : Robert Jaffe MD Supervisor [place] Department : Veterinary Bacteriologist : Robert Jaffe MD Approver2 : Report Date : 10/07/2018 14:58:07 My Comment : Date of service: 10/07/2018 PROCEDURE: CT Abdomen and Pelvis without intravenous contrast HISTORY: Right sided abdominal pain. COMPARISON: 06/20/2018 TECHNIQUE: Without contrast.. Contrast dose: 0 Radiation dose: Total exam DLP = 829.26 mGy-cm. This CT exam was performed using one or more of the following dose reduction mami hniques: Automated exposure control, adjustment of the mA and/or kV according to patient size, and/or use of iterative reconstruction technique. FINDINGS: LOWER THORAX: Unremarkable. LIVER: Unremarkable. No gross lesion or ductal dilatation. GALLBLADDER AND BILE DUCTS: Unremarkable. PANCREAS: Unremarkable. No gross lesion or ductal dilatation. SPLEEN: Unremarkable. ADRENALS: Unremarkable. No mass. KIDNEYS AND URETERS: Right hydroureteronephrosis. There are 2 calculi in the mid right ureter, measuring roughly 6 mm and 7 mm respectively. These are obstructing. There is no hydroureter distal to these calculi. There are several small calculi in the lower pole right kidney, nonobstructing. No renal mass. 2 mm nonobstructing left upper pole renal calculus. VASCULATURE: Unremarkable. No aortic aneurysm. No aortic atherosclerotic calcification or mural plaque present. BOWEL: Unremarkable. No obstruction. No gross mural thickening. APPENDIX: Not identified. No secondary findings. PERITONEUM: Unremarkable. No free fluid. No free air. LYMPH NODES: Unremarkable. No enlarged lymph nodes. BLADDER: Poorly distended. No gross abnormality. REPRODUCTIVE: Status post hysterectomy BONES: No acute fracture. OTHER FINDINGS: None. IMPRESSION: Two obstructing mid right ureteral calculi, 6 and 7 mm respectively. Several nonobstructing right lower pole renal calculi and 1 nonobstructing left upper pole renal calculus. Right hydroureteronephrosis. No other significant abnormality. d/w Dr Cloud, will take to OR tonight. Explained results and recommendations w patient. States states no solid food since yesterday, coffee/sugar water at 9am and cranberry juice at 1pm. Deck Scaler [id number] used to verify. Admit hospitalist, prior [facility] visits. Scribe Attestation: Documented by Tova Grace, acting as a scribe for Monty Burton DO. Provider Scribe Attestation: All medical record entries made by the Scribe were at my direction and personally dictated by me. I have reviewed the chart and agree that the record accurately reflects my personal performance of the history, physical exam, medical decision making, and the department course for this patient. I have also personally directed, reviewed, and agree with the discharge instructions and disposition. Disposition Counseled Patient/Family Regarding: Studies Performed, Diagnosis - Clinical Impression Clinical Impression: Nephrolithiasis, Hydronephrosis - POA Present On Arrival: None - Disposition Disposition: Hospitalized as Observation Patient Disposition Time: 15:30 Condition: STABLE
--- NOTE | 2018-10-07 16:30 | CP.PCM.HP ---
<Rafy Davis - Last Filed: 10/07/18 16:39> History of Present Illness - History of Present Illness History of Present Illness: 43 yo female with PMH of asthma, and multiple abdominal surgery present to ED to evaluation of worsening right sided abd pain that started 1 week ago. Patient report pain come and goes, and its not persistent, she does complain of N/V but only when pain is severe, otherwise patient have no complain. Denies fever, chills, chest pain, sob, diarrhea, constipation. Patient denies having any heart problem, only medical problem is Asthma and last asthma attack was 1 year ago. Patient off medication, and currently she is not taking anything. PMD none provicded Allergy: none PMH asthma Medication none PSH: Hernia repair, hysterectomy due to cancer, 3 c sec, Bilateral oophorectomy, appendectomy social denies smoke drink or drug use. ED course VItals WNL Patient CBC CMP wnl Patient received Ketorolac, reglan and sodium chloride. MRI: two obstructing mid right ureteral calculi, 6 and 7 mm respectively. several nonobstructing right lower pole renal calculi and 1 nonobstructiing left upper pole renal calculus. Right Hydroureteronephrosis. no other sig abnormalities Present on Admission - Present on Admission Any Indicators Present on Admission: No Review of Systems - Review of Systems All systems: reviewed and no additional remarkable complaints except Past Patient History - Infectious Disease Hx of Infectious Diseases: None - Past Social History Alcohol: None Drugs: Denies - CARDIAC Hx Cardiac Disorders: No - PULMONARY Hx Asthma: Yes - NEUROLOGICAL Hx Neurological Disorder: No - HEENT Hx HEENT Problems: No - RENAL Hx Chronic Kidney Disease: No Hx Kidney Stones: Yes - ENDOCRINE/METABOLIC Hx Endocrine Disorders: No - HEMATOLOGICAL/ONCOLOGICAL Hx Blood Disorders: Yes Hx Cancer: Yes (Uterine cancer) - INTEGUMENTARY Hx Dermatological Problems: No - MUSCULOSKELETAL/RHEUMATOLOGICAL Hx Musculoskeletal Disorders: No Other/Comment: Varicose veins - GASTROINTESTINAL Hx Gastrointestinal Disorders: Yes - GENITOURINARY/GYNECOLOGICAL Hx Genitourinary Disorders: Yes Hx Uterine Cancer: Yes Other/Comment: Bilateral ovary removal. - PSYCHIATRIC Hx Psychophysiologic Disorder: No Hx Substance Use: No - SURGICAL HISTORY Hx Appendectomy: Yes - ANESTHESIA Hx Anesthesia: Yes Hx Anesthesia Reactions: No Hx Malignant Hyperthermia: No Meds Allergies/Adverse Reactions: Allergies Allergy/AdvReac Type Severity Reaction Status Date / Time No Known Allergies Allergy Verified 06/19/18 21:16 Physical Exam - Constitutional Appears: Well, Non-toxic, No Acute Distress - Head Exam Head Exam: ATRAUMATIC, NORMAL INSPECTION, NORMOCEPHALIC - Eye Exam Eye Exam: EOMI, Normal appearance, PERRL Pupil Exam: NORMAL ACCOMODATION, PERRL - ENT Exam ENT Exam: Mucous Membranes Moist, Normal Exam - Neck Exam Neck exam: Positive for: Normal Inspection - Respiratory Exam Respiratory Exam: Clear to Auscultation Bilateral, NORMAL BREATHING PATTERN - Cardiovascular Exam Cardiovascular Exam: REGULAR RHYTHM, +S1, +S2 - GI/Abdominal Exam GI & Abdominal Exam: Normal Bowel Sounds, Soft - Extremities Exam Extremities exam: Positive for: normal inspection - Back Exam Back exam: CVA tenderness (R), NORMAL INSPECTION - Neurological Exam Neurological exam: Alert, CN II-XII Intact, Normal Gait, Oriented x3, Reflexes Normal - Psychiatric Exam Psychiatric exam: Normal Affect, Normal Mood - Skin Skin Exam: Dry, Intact, Normal Color, Warm Results - Vital Signs Recent Vital Signs: Last Vital Signs Temp 98.3 F 10/07/18 11:22 Pulse 76 10/07/18 11:22 Resp 16 10/07/18 11:22 BP 128/80 10/07/18 11:22 Pulse Ox 99 10/07/18 16:23 - Labs Result Diagrams: 10/07/18 12:40 10/07/18 12:40 Labs: Laboratory Results - last 24 hr 10/07/18 10/07/18 10/07/18 12:40 12:40 12:40 WBC 8.0 RBC 4.67 Hgb 14.0 Hct 41.6 MCV 89.2 MCH 29.9 MCHC 33.5 RDW 13.3 Plt Count 274 MPV 9.1 Neut % (Auto) 74.8 Lymph % (Auto) 15.8 L [place] % (Auto) 7.2 Eos % (Auto) 2.1 Baso % (Auto) 0.1 Neut # (Auto) 6.0 Lymph # (Auto) 1.3 [place] # (Auto) 0.6 Eos # (Auto) 0.2 Baso # (Auto) 0.0 Sodium 142 Potassium 4.7 Chloride 105 Carbon Dioxide 30 Anion Gap 12 BUN 17 Creatinine 0.6 L Est GFR ( Amer) > 60 Est GFR (Non-Af Amer) > 60 Random Glucose 106 H Calcium 9.6 Total Bilirubin 0.3 AST 22 ALT 27 Alkaline Phosphatase 91 Total Protein 7.5 Albumin 4.1 Globulin 3.4 Albumin/Globulin Ratio 1.2 Urine Color Yellow Urine Clarity Clear Urine pH 6.0 Ur Specific [place] 1.009 Urine Protein Negative Urine Glucose (UA) Neg Urine Ketones Negative Urine Blood Moderate Urine Nitrate Negative Urine Bilirubin Negative Urine Urobilinogen 0.2-1.0 Ur Leukocyte Esterase Neg Urine RBC (Auto) 12 H Urine Microscopic WBC 3 Ur Squamous Epith Cells 2 Assessment & Plan - Assessment and Plan (Free Text) Assessment: 43 yo female with PMH of asthma, and multiple abdominal surgery present to ED to evaluation of worsening right sided abd pain that started 1 week ago. WIll be admitted for Stone manipulation and stent placement on right ureter. MRI: two obstructing mid right ureteral calculi, 6 and 7 mm respectively. severa l nonobstructing right lower pole renal calculi and 1 nonobstructiing left upper pole renal calculus. Right Hydroureteronephrosis. no other sig abnormalities Plan Right Hydroureteronephrosis. Stone manipulation and stent placement on right ureter. Patient denies having any medical condition except asthma, controlled, last attack 1 year ago. previous surgery with no complication during anesthesia Patient is medically cleared by Medical team for surgery. Patient is low risk for surgery/procedure FU with Urulogist <Jordy Morrison - Last Filed: 10/07/18 17:16> Results - Vital Signs Recent Vital Signs: Last Vital Signs Temp 98.3 F 10/07/18 11:22 Pulse 76 10/07/18 11:22 Resp 16 10/07/18 11:22 BP 128/80 10/07/18 11:22 Pulse Ox 99 10/07/18 16:23 - Labs Result Diagrams: 10/07/18 12:40 10/07/18 12:40 Labs: Laboratory Results - last 24 hr 10/07/18 10/07/18 10/07/18 12:40 12:40 12:40 WBC 8.0 RBC 4.67 Hgb 14.0 Hct 41.6 MCV 89.2 MCH 29.9 MCHC 33.5 RDW 13.3 Plt Count 274 MPV 9.1 Neut % (Auto) 74.8 Lymph % (Auto) 15.8 L [place] % (Auto) 7.2 Eos % (Auto) 2.1 Baso % (Auto) 0.1 Neut # (Auto) 6.0 Lymph # (Auto) 1.3 [place] # (Auto) 0.6 Eos # (Auto) 0.2 Baso # (Auto) 0.0 PT INR APTT Sodium 142 Potassium 4.7 Chloride 105 Carbon Dioxide 30 Anion Gap 12 BUN 17 Creatinine 0.6 L Est GFR ( Amer) > 60 Est GFR (Non-Af Amer) > 60 Random Glucose 106 H Calcium 9.6 Total Bilirubin 0.3 AST 22 ALT 27 Alkaline Phosphatase 91 Total Protein 7.5 Albumin 4.1 Globulin 3.4 Albumin/Globulin Ratio 1.2 Urine Color Yellow Urine Clarity Clear Urine pH 6.0 Ur Specific [place] 1.009 Urine Protein Negative Urine Glucose (UA) Neg Urine Ketones Negative Urine Blood Moderate Urine Nitrate Negative Urine Bilirubin Negative Urine Urobilinogen 0.2-1.0 Ur Leukocyte Esterase Neg Urine RBC (Auto) 12 H Urine Microscopic WBC 3 Ur Squamous Epith Cells 2 10/07/18 16:10 WBC RBC Hgb Hct MCV MCH MCHC RDW Plt Count MPV Neut % (Auto) Lymph % (Auto) [place] % (Auto) Eos % (Auto) Baso % (Auto) Neut # (Auto) Lymph # (Auto) [place] # (Auto) Eos # (Auto) Baso # (Auto) PT 12.0 INR 1.1 APTT 37.8 H Sodium Potassium Chloride Carbon Dioxide Anion Gap BUN Creatinine Est GFR ( Amer) Est GFR (Non-Af Amer) Random Glucose Calcium Total Bilirubin AST ALT Alkaline Phosphatase Total Protein Albumin Globulin Albumin/Globulin Ratio Urine Color Urine Clarity Urine pH Ur Specific [place] Urine Protein Urine Glucose (UA) Urine Ketones Urine Blood Urine Nitrate Urine Bilirubin Urine Urobilinogen Ur Leukocyte Esterase Urine RBC (Auto) Urine Microscopic WBC Ur Squamous Epith Cells Attending/Attestation - Attestation I have personally seen and examined this patient.: Yes I have fully participated in the care of the patient.: Yes I have reviewed all pertinent clinical information: Yes Notes (Text): 10/07/18 17:10 Patient seen and examined with resident. Case discussed and agreed with assessment and plan of management. Patient scheduled for ureteral stones extraction. Patient is cleared as low surgical risk.
[2018-10-07 16:56] LABS: INR 1.1
[2018-10-07 16:59] LABS: PARTIAL THROMBOPLASTIN TIME 37.8 Seconds (25.6-37.1)
[2018-10-07] MEDS: Sodium Chloride 0.9% 1,000 ML IV SCH (17:15)
--- NOTE | 2018-10-07 17:15 | RAD ---
HISTORY: preop COMPARISON: None available. TECHNIQUE: Chest, one view. FINDINGS: Examination limited by habitus. LUNGS: No focal consolidation. Please note that chest x-ray has limited sensitivity for the detection of pulmonary masses. PLEURA: No significant pleural effusion identified. No definite pneumothorax . CARDIOVASCULAR: The cardiomediastinal silhouette appears within normal limits of size. No significant atherosclerotic calcification present. OSSEOUS STRUCTURES: No acute osseous abnormality identified. VISUALIZED UPPER ABDOMEN: Unremarkable. OTHER FINDINGS: None. IMPRESSION: No focal consolidation.
[2018-10-07] MEDS ORDERED: Propofol 10 mg/ml Inj (20 ML) ONE (18:15)
[2018-10-07] MEDS ORDERED: Succinylcholine 200 mg/10 ml Inj IV ONE (18:15)
[2018-10-07] MEDS ORDERED: Lidocaine 4% (Laryng-O-Jet) Kit MM ONE (18:15)
[2018-10-07] MEDS ORDERED: Lidocaine 2% Jelly (Uro-Jet) ONE (18:16)
[2018-10-07] MEDS ORDERED: cefTRIAXone (Rocephin) 1 gm Inj ONE (18:16)
[2018-10-07] MEDS ORDERED: Lactated Ringer's 1,000 ML IV ONE ×2 (18:57→19:30)
[2018-10-07] MEDS ORDERED: Midazolam 2 MG/2 ML VIAL ONE (18:58)
[2018-10-07] MEDS ORDERED: Dexamethasone 4 mg/1 ml ONE (19:05)
[2018-10-07] MEDS ORDERED: Liquid Adhesive TOP ONE (19:16)
[2018-10-07] MEDS ORDERED: HYDROmorphone 0.5 mg/0.5 ml ISec IVP PRN (19:35)
[2018-10-07] MEDS ORDERED: Lactated Ringer's 1,000 ML IV SCH (19:45)
[2018-10-08] MEDS: Sodium Chloride 0.9% 1,000 ML IV SCH (04:00)
[2018-10-08 06:37] LABS: HEMOGLOBIN 13.9 g/dL (12.0-16.0); LYMPH # 0.7 K/uL (1.0-4.3); LYMPH % 7.2 % (20.0-40.0); MEAN CORPUSCULAR HEMOGLOBIN 29.6 pg (27.0-31.0); MEAN CORPUSCULAR HGB CONC 32.9 g/dL (33.0-37.0); MEAN PLATELET VOLUME 9.2 fl (7.2-11.7); MONO # 0.3 K/uL (0.0-0.8); MONO % 2.6 % (0.0-10.0); NEUT # 8.9 K/uL (1.8-7.0); NEUT % 90.2 % (50.0-75.0); PLATELET COUNT 288 K/uL (130-400); RBC 4.69 Mil/uL (3.80-5.20); RED CELL DISTRIBUTION WIDTH 13.2 % (11.5-14.5); WHITE BLOOD COUNT 9.8 K/uL (4.8-10.8)
[2018-10-08 07:03] LABS: BLOOD UREA NITROGEN 13 mg/dl (7-17); CALCIUM 9.3 mg/dL (8.4-10.2); GFR NON-AFRICAN AMERICAN > 60
[2018-10-08] MEDS ORDERED: Pneumococcal 23-Valent Vaccine IM ONE (07:30)
[2018-10-08 08:39] VITALS: BP 120/78; PULSE 87; RESP 18; TEMP 97.7
[2018-10-08 08:51] LABS: BANDS 2 % (0-2); EOSINOPHIL 1 % (0-7); LYMPHOCYTE 10 % (20-50); MONOCYTE 3 % (0-10); NEUTROPHIL 84 % (42-75); PLATELET ESTIMATE NORMAL (NORMAL); TOTAL CELLS COUNTED 100
[2018-10-08] MEDS ORDERED: Pantoprazole 40 mg EC Tab PO SCH (09:00)
--- NOTE | 2018-10-08 11:22 | CP.PCM.DIS ---
<Rafy Davis - Last Filed: 10/08/18 13:06> Provider - Provider Date of Admission: 10/07/18 15:47 Attending physician: Jordy Morrison MD Time Spent in preparation of Discharge (in minutes): 20 Diagnosis - Discharge Diagnosis (1) Hydronephrosis Status: Resolved (2) Nephrolithiasis Status: Resolved Hospital Course - Lab Results Lab Results: Most Recent Lab Values WBC 9.8 K/uL (4.8-10.8) 10/08/18 06:10 RBC 4.69 Mil/uL (3.80-5.20) 10/08/18 06:10 Hgb 13.9 g/dL (12.0-16.0) 10/08/18 06:10 Hct 42.2 % (34.0-47.0) 10/08/18 06:10 MCV 90.0 fl (81.0-99.0) 10/08/18 06:10 MCH 29.6 pg (27.0-31.0) 10/08/18 06:10 MCHC 32.9 g/dL (33.0-37.0) L 10/08/18 06:10 RDW 13.2 % (11.5-14.5) 10/08/18 06:10 Plt Count 288 K/uL (130-400) 10/08/18 06:10 MPV 9.2 fl (7.2-11.7) 10/08/18 06:10 Neut % (Auto) 90.2 % (50.0-75.0) H 10/08/18 06:10 Lymph % (Auto) 7.2 % (20.0-40.0) L 10/08/18 06:10 [place] % (Auto) 2.6 % (0.0-10.0) 10/08/18 06:10 Eos % (Auto) 0.0 % (0.0-4.0) 10/08/18 06:10 Baso % (Auto) 0.0 % (0.0-2.0) 10/08/18 06:10 Neut # (Auto) 8.9 K/uL (1.8-7.0) H 10/08/18 06:10 Lymph # (Auto) 0.7 K/uL (1.0-4.3) L 10/08/18 06:10 [place] # (Auto) 0.3 K/uL (0.0-0.8) 10/08/18 06:10 Eos # (Auto) 0.0 K/uL (0.0-0.7) 10/08/18 06:10 Baso # (Auto) 0.0 K/uL (0.0-0.2) 10/08/18 06:10 Neutrophils % (Manual) 84 % (42-75) H 10/08/18 06:10 Band Neutrophils % 2 % (0-2) 10/08/18 06:10 Lymphocytes % (Manual) 10 % (20-50) L 10/08/18 06:10 Monocytes % (Manual) 3 % (0-10) 10/08/18 06:10 Eosinophils % (Manual) 1 % (0-7) 10/08/18 06:10 Platelet Estimate Normal (NORMAL) 10/08/18 06:10 RBC Morphology Normal (NORMAL) 10/08/18 06:10 PT 12.0 Seconds (9.8-13.1) 10/07/18 16:10 INR 1.1 10/07/18 16:10 APTT 37.8 Seconds (25.6-37.1) H 10/07/18 16:10 Sodium 140 mmol/l (132-148) 10/08/18 06:10 Potassium 4.1 MMOL/L (3.6-5.0) 10/08/18 06:10 Chloride 107 mmol/L (98-107) 10/08/18 06:10 Carbon Dioxide 26 mmol/L (22-30) 10/08/18 06:10 Anion Gap 11 (10-20) 10/08/18 06:10 BUN 13 mg/dl (7-17) 10/08/18 06:10 Creatinine 0.5 mg/dl (0.7-1.2) L 10/08/18 06:10 Est GFR ( Amer) > 60 10/08/18 06:10 Est GFR (Non-Af Amer) > 60 10/08/18 06:10 Random Glucose 130 mg/dL (65-105) H 10/08/18 06:10 Calcium 9.3 mg/dL (8.4-10.2) 10/08/18 06:10 Total Bilirubin 0.3 mg/dl (0.2-1.3) 10/07/18 12:40 AST 22 U/L (14-36) 10/07/18 12:40 ALT 27 U/L (9-52) 10/07/18 12:40 Alkaline Phosphatase 91 U/L (38-126) 10/07/18 12:40 Total Protein 7.5 G/DL (6.3-8.2) 10/07/18 12:40 Albumin 4.1 g/dL (3.5-5.0) 10/07/18 12:40 Globulin 3.4 gm/dL (2.2-3.9) 10/07/18 12:40 Albumin/Globulin Ratio 1.2 (1.0-2.1) 10/07/18 12:40 Urine Color Yellow (YELLOW) 10/07/18 12:40 Urine Clarity Clear (Clear) 10/07/18 12:40 Urine pH 6.0 (5.0-8.0) 10/07/18 12:40 Ur Specific [place] 1.009 (1.003-1.030) 10/07/18 12:40 Urine Protein Negative mg/dL (NEGATIVE) 10/07/18 12:40 Urine Glucose (UA) Neg mg/dL (NEGATIVE) 10/07/18 12:40 Urine Ketones Negative mg/dL (NEGATIVE) 10/07/18 12:40 Urine Blood Moderate (NEGATIVE) 10/07/18 12:40 Urine Nitrate Negative (NEGATIVE) 10/07/18 12:40 Urine Bilirubin Negative (NEGATIVE) 10/07/18 12:40 Urine Urobilinogen 0.2-1.0 mg/dL (0.2-1.0) 10/07/18 12:40 Ur Leukocyte Esterase Neg Jon/uL (Negative) 10/07/18 12:40 Urine RBC (Auto) 12 /hpf (0-3) H 10/07/18 12:40 Urine Microscopic WBC 3 /hpf (0-5) 10/07/18 12:40 Ur Squamous Epith Cells 2 /hpf (0-5) 10/07/18 12:40 Blood Type A POSITIVE 10/07/18 16:10 Blood Type Confirm A POSITIVE 10/08/18 09:15 Antibody Screen Negative 10/07/18 16:10 BBK History Checked No verified bt 10/07/18 16:10 - Hospital Course Hospital Course: 43 yo female with PMH of asthma, and multiple abdominal surgery present to ED to evaluation of worsening right sided abd pain that started 1 week ago. WIll be admitted for Stone manipulation and stent placement on right ureter ED course VItals WNL Patient CBC CMP wnl Patient received Ketorolac, reglan and sodium chloride. MRI: two obstructing mid right ureteral calculi, 6 and 7 mm respectively. several nonobstructing right lower pole renal calculi and 1 nonobstructiing left upper pole renal calculus. Right Hydroureteronephrosis. no other sig abnormalities MRI: two obstructing mid right ureteral calculi, 6 and 7 mm respectively. several nonobstructing right lower pole renal calculi and 1 nonobstructiing left upper pole renal calculus. Right Hydroureteronephrosis. no other sig abnormalities During his stay patient was seen by urologist. Stone manipulation and stent placement was done on right ureter. Patient was seen and examined at bedside. No acute event overnight. Patient report feeling much better. She report having some pain upon urination but no bleeding noted. Otherwise denies any fever, chills, chest pain, sob, abd pain, diarrhea, constipation, polyuria. Patient is comfortable to be discharged home and follow up with PCP ER precaution given. Discharge Exam - Head Exam Head Exam: ATRAUMATIC, NORMAL INSPECTION, NORMOCEPHALIC - Eye Exam Eye Exam: EOMI, Normal appearance, PERRL Pupil Exam: NORMAL ACCOMODATION, PERRL - Respiratory Exam Respiratory Exam: Clear to PA & Lateral, NORMAL BREATHING PATTERN, UNREMARKABLE - Cardiovascular Exam Cardiovascular Exam: REGULAR RHYTHM, +S1, +S2 - GI/Abdominal Exam GI & Abdominal Exam: Normal Bowel Sounds, Unremarkable - Extremities Exam Extremities exam: normal inspection - Back Exam Back exam: NORMAL INSPECTION - Neurological Exam Neurological exam: Alert, CN II-XII Intact, Normal Gait, Oriented x3, Reflexes Normal - Psychiatric Exam Psychiatric exam: Normal Affect, Normal Mood - Skin Skin Exam: Dry, Intact, Normal Color, Warm Discharge Plan - Follow Up Plan Condition: STABLE Disposition: HOME/ ROUTINE Instructions: Ciprofloxacin (Systemic), Kidney Stones (DC), Acetaminophen and Tramadol, Cystoscopy (DC), Ureteral Stent (DC) Additional Instructions: hacer idris con sawyer doctor primario y Dr. Pedro Luis lizarraga 1 semana Referrals: Abel Cloud MD [Medical Doctor] - Micheal Toth MD [Family Provider] - <Jordy Morrison - Last Filed: 10/08/18 13:42> Provider - Provider Date of Admission: 10/07/18 15:47 Attending physician: Jordy Morrison MD Hospital Course - Lab Results Lab Results: Most Recent Lab Values WBC 9.8 K/uL (4.8-10.8) 10/08/18 06:10 RBC 4.69 Mil/uL (3.80-5.20) 10/08/18 06:10 Hgb 13.9 g/dL (12.0-16.0) 10/08/18 06:10 Hct 42.2 % (34.0-47.0) 10/08/18 06:10 MCV 90.0 fl (81.0-99.0) 10/08/18 06:10 MCH 29.6 pg (27.0-31.0) 10/08/18 06:10 MCHC 32.9 g/dL (33.0-37.0) L 10/08/18 06:10 RDW 13.2 % (11.5-14.5) 10/08/18 06:10 Plt Count 288 K/uL (130-400) 10/08/18 06:10 MPV 9.2 fl (7.2-11.7) 10/08/18 06:10 Neut % (Auto) 90.2 % (50.0-75.0) H 10/08/18 06:10 Lymph % (Auto) 7.2 % (20.0-40.0) L 10/08/18 06:10 [place] % (Auto) 2.6 % (0.0-10.0) 10/08/18 06:10 Eos % (Auto) 0.0 % (0.0-4.0) 10/08/18 06:10 Baso % (Auto) 0.0 % (0.0-2.0) 10/08/18 06:10 Neut # (Auto) 8.9 K/uL (1.8-7.0) H 10/08/18 06:10 Lymph # (Auto) 0.7 K/uL (1.0-4.3) L 10/08/18 06:10 [place] # (Auto) 0.3 K/uL (0.0-0.8) 10/08/18 06:10 Eos # (Auto) 0.0 K/uL (0.0-0.7) 10/08/18 06:10 Baso # (Auto) 0.0 K/uL (0.0-0.2) 10/08/18 06:10 Neutrophils % (Manual) 84 % (42-75) H 10/08/18 06:10 Band Neutrophils % 2 % (0-2) 10/08/18 06:10 Lymphocytes % (Manual) 10 % (20-50) L 10/08/18 06:10 Monocytes % (Manual) 3 % (0-10) 10/08/18 06:10 Eosinophils % (Manual) 1 % (0-7) 10/08/18 06:10 Platelet Estimate Normal (NORMAL) 10/08/18 06:10 RBC Morphology Normal (NORMAL) 10/08/18 06:10 PT 12.0 Seconds (9.8-13.1) 10/07/18 16:10 INR 1.1 10/07/18 16:10 APTT 37.8 Seconds (25.6-37.1) H 10/07/18 16:10 Sodium 140 mmol/l (132-148) 10/08/18 06:10 Potassium 4.1 MMOL/L (3.6-5.0) 10/08/18 06:10 Chloride 107 mmol/L (98-107) 10/08/18 06:10 Carbon Dioxide 26 mmol/L (22-30) 10/08/18 06:10 Anion Gap 11 (10-20) 10/08/18 06:10 BUN 13 mg/dl (7-17) 10/08/18 06:10 Creatinine 0.5 mg/dl (0.7-1.2) L 10/08/18 06:10 Est GFR ( Amer) > 60 10/08/18 06:10 Est GFR (Non-Af Amer) > 60 10/08/18 06:10 Random Glucose 130 mg/dL (65-105) H 10/08/18 06:10 Calcium 9.3 mg/dL (8.4-10.2) 10/08/18 06:10 Total Bilirubin 0.3 mg/dl (0.2-1.3) 10/07/18 12:40 AST 22 U/L (14-36) 10/07/18 12:40 ALT 27 U/L (9-52) 10/07/18 12:40 Alkaline Phosphatase 91 U/L (38-126) 10/07/18 12:40 Total Protein 7.5 G/DL (6.3-8.2) 10/07/18 12:40 Albumin 4.1 g/dL (3.5-5.0) 10/07/18 12:40 Globulin 3.4 gm/dL (2.2-3.9) 10/07/18 12:40 Albumin/Globulin Ratio 1.2 (1.0-2.1) 10/07/18 12:40 Urine Color Yellow (YELLOW) 10/07/18 12:40 Urine Clarity Clear (Clear) 10/07/18 12:40 Urine pH 6.0 (5.0-8.0) 10/07/18 12:40 Ur Specific [place] 1.009 (1.003-1.030) 10/07/18 12:40 Urine Protein Negative mg/dL (NEGATIVE) 10/07/18 12:40 Urine Glucose (UA) Neg mg/dL (NEGATIVE) 10/07/18 12:40 Urine Ketones Negative mg/dL (NEGATIVE) 10/07/18 12:40 Urine Blood Moderate (NEGATIVE) 10/07/18 12:40 Urine Nitrate Negative (NEGATIVE) 10/07/18 12:40 Urine Bilirubin Negative (NEGATIVE) 10/07/18 12:40 Urine Urobilinogen 0.2-1.0 mg/dL (0.2-1.0) 10/07/18 12:40 Ur Leukocyte Esterase Neg Jon/uL (Negative) 10/07/18 12:40 Urine RBC (Auto) 12 /hpf (0-3) H 10/07/18 12:40 Urine Microscopic WBC 3 /hpf (0-5) 10/07/18 12:40 Ur Squamous Epith Cells 2 /hpf (0-5) 10/07/18 12:40 Blood Type A POSITIVE 10/07/18 16:10 Blood Type Confirm A POSITIVE 10/08/18 09:15 Antibody Screen Negative 10/07/18 16:10 BBK History Checked No verified bt 10/07/18 16:10 Attending/Attestation - Attestation I have personally seen and examined this patient.: Yes I have fully participated in the care of the patient.: Yes I have reviewed all pertinent clinical information, including history, physical exam and plan: Yes Notes (Text): 10/08/18 13:40 Patient seen and examined with resident. Case discussed and agreed with assessment. Patient had J stent last night because of obstructing right ureterolithiasis and did well post procedure. Patient is discharged in stable condition.
--- NOTE | 2018-10-08 17:01 | RAD ---
Date of service: 10/07/2018 PROCEDURE: Intraoperative Fluoroscopy. HISTORY: CYSTO IN OR FINDINGS: Fluoroscopic assistance was provided for intraoperative cystogram and stent placement. Please refer to the operative report from CLAUDE Tolbert.
--- NOTE | 2018-10-09 14:01 | CARD ---
APPROVED REPORT Date of service: 10/07/2018 EKG Measurement Heart [id number] <Conclusion> Sinus tachycardia Nonspecific ST abnormality Abnormal ECG
[2018-10-18 10:45] VITALS: O2SAT 99
--- NOTE | 2018-10-19 21:58 | OP ---
PROCEDURE DATE: 10/06/2018 PREOPERATIVE DIAGNOSIS: Right renal colic with right ureteral calculus. POSTOPERATIVE DIAGNOSIS: Right renal colic with right ureteral calculus. PROCEDURES PERFORMED: Cystoscopy, right ureteroscopy, right double J-stent placement under general anesthesia. SURGEON: Abel Cloud MD ANESTHESIA: General anesthesia. DESCRIPTION OF PROCEDURE: The patient was placed on the operating room table in a dorsal lithotomy position. The area of the groin was draped and prepped in a sterile manner. Using a short ureteroscope, I entered into the bladder atraumatically, identified the right ureteral orifice. At this point, I advanced a sensor wire, and over that wire, I advanced the ureteroscope. I was able to see in the mid ureter an obstructing impacted stone. I tried to dislodge it and got somewhat successful with it, but it was still rather firmly embedded in that area. There were no other stones according to the CT scan. So, at this time I removed the ureteroscope, and I advanced a #6 Sami multi-link double J-stent over the sensor wire. Once this was fluoroscopically in place, the patient was taken from the operating room in good condition. Abel Cloud MD
== END 2018-10-08 14:36 | disposition home or self-care (01) ==
LOC: H.ER 11:19 → H.ERHOLD 15:47 → H.MEDSURG1 22:05
DX: N13.2 Hydronephrosis with renal and ureteral calculous obstruction (principal); J45.909 Unspecified asthma, uncomplicated; Z85.42 Personal history of malignant neoplasm of other parts of uterus; Z23 Encounter for immunization; Z87.442 Personal history of urinary calculi; Z90.49 Acquired absence of other specified parts of digestive tract; Z90.710 Acquired absence of both cervix and uterus
CPT/HCPCS: 36415; 52005; 71045; 74176; 80048; 80053; 81003; 85025; 85610; 85730; 86850; 86900; 90471; 90732; 93005; 96365; 96375; 99285; C2617; G0378; J0330; J0696; J1100; J1885; J2001; J2250; J2704; J2765; J3010; J7030; J7120